=== PATIENT | female | born 1955 | race Two or more races ===

== ENCOUNTER 2020-08-02 17:39 | Emergency (ER) | payer BC ==
[~2020-08-02] VITALS: Ht 167.6 cm; Wt 70.3 kg
--- NOTE | 2020-08-02 17:56 | Emergency Room Report ---
History of Present Illness General Chief Complaint: Toothache Source: Patient Present Illness HPI 65-year-old female presents to emergency department complaining of 9 out of 10 severity bilateral clogged ears x4 days. Patient reports that she has been using [id number] earwax removal with no relief of her symptoms. Patient reports that she cannot hear out of her ears. She believes that this happened a fter water got into her ear during dental procedure 2 weeks ago. She denies fevers or chills. She denies dental pain at this time. She denies headache, dizziness, tinnitus. She denies soft tissue swelling or tenderness in front of or behind the ears. She also reports that she has been attempting to clean her ears out using soaked in alcohol. 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 Diaz is my supervising Physician whom patient management has been discussed with. Diagnostic Impression: Primary Impression: Impacted cerumen of both ears ER Course 65-year-old female presents to emergency department complaining of 9 out of 10 severity bilateral clogged ears x4 days. Patient reports that she has been using [id number] earwax removal with no relief of her symptoms. Patient reports that she cannot hear out of her ears. She believes that this happened after water got into her ear during dental procedure 2 weeks ago. She denies fevers or chills. She denies dental pain at this time. She denies headache, dizziness, tinnitus. She denies soft tissue swelling or tenderness in front of or behind the ears. She also reports that she has been attempting to clean her ears out using soaked in alcohol. Ddx considered but are not limited to OM, OE, mastoiditis, TM perforation, FB, cerumen impaction just name a few Vital signs: are WNL, pt. is afebrile H&PE are most consistent with Impacted cerumen of the bilateral ear canals ORDERS: none required at this time, the diagnosis is clinical -OTOSCOPY: Impacted cerumen in the bilateral ear canals. ED INTERVENTIONS: - Cerumen Removal: verbal consent was obtained by pt. Irrigation with NS 0.9% used to remove the cerumen from the bilateral ear canals. Pt. tolerated well, there were no complications. re-evaluation pt. is able to hear again, there is no evidence of TM infection or rupture, canal is WNL. DISCHARGE: At this time pt. is stable for d/c to home. With rx for Debrox. Will provide printed patient care instructions, and any necessary prescriptions. Care plan and follow up instructions have been discussed with the patient prior to discharge. Last Vital Signs Date Time Temp Pulse Resp B/P (MAP) Pulse Ox O2 Delivery O2 Flow Rate FiO2 08/02/20 17:47 98.2 96 16 182/101 (128) 96 Room Air Disposition: HOME, SELF-CARE Condition: Stable Referrals: Kimberly Pedersen [facility]. [facility] Patient Instructions: Cerumen Impaction Additional Instructions: ~ ~ An emergent medical condition has not been identified based on this patients presentation, exam and any necessary testing/imaging. The patient is determined to be stable for outpatient follow-up and management of symptoms by a primary care provider. Take medications as directed. Follow up with a Primary Care Provider in 3-5 days, even if your symptoms have resolved. --Please review list of primary care clinics, if you do not already have a primary care provider Return sooner to ED if new symptoms occur, or current symptoms become worse. - Please note that this Emergency Department Report was dictated using [employer] transcription editor technology software, occasionally this can lead to erroneous entry secondary to interpretation by the dictation equipment. Pepper Resendez Aug 02, 2020 17:56
[2020-08-02 18:02] VITALS: BP 153/90
[2020-08-02] MEDS ORDERED: OFLOXACIN5 ML OT (18:34)
[2020-08-02 18:50] VITALS: BP 138/82
== END 2020-08-02 18:38 | disposition home or self-care (01) ==
LOC: EMR 18:00
DX: H61.23 Impacted cerumen, bilateral (principal)
CPT/HCPCS: 99281